=== PATIENT | male | born 1985 | race Caucasian/White ===

== ENCOUNTER 2018-09-16 00:18 | Emergency (ER) | payer SELFPAY ==
[~2018-09-16] VITALS: Ht 170.2 cm; Wt 83.9 kg
[2018-09-16 00:45] VITALS: BP 128/94
--- NOTE | 2018-09-16 00:45 | NUR ---
ER Nurse Note: Pt BIBA 28 from [facility] house c/o snorting a white powder. Per EMS, pt "thought he was taking coke and/or heroin". Pt stated he took fentanyl laced with unknown substance. Pt was given narcan on route; pt a&ox3, VSS. Pt is pale and clammy; awake and alert. Pinpoint pupils; able to track eyes. Substance was found on pt, [employer] confiscated belonging. Will continue to [facility].
--- NOTE | 2018-09-16 00:48 | Emergency Room Report ---
History of Present Illness General Chief Complaint: Overdose Source: Patient, EMS Present Illness HPI Is a 33-year-old male with a history drug abuse. He presents with chief complaint overdose. Friends or acquaintances called 911 because he overdose. He was unresponsive with pinpoint pupil. EMS gave Narcan with good response. Patient had a bag of white substance in his left pocket. This was given to police. Patient said that he did a line of that drug. He thought it was cocaine. Now he thinks his hair when lays with fentanyl. Patient is awake now. Denies any other complaint. No suicidal thoughts or homicidal thought. Allergies: Coded Allergies: No Known Allergies (Unverified , 09/16/18) Patient History Past Medical History: see triage record, old chart reviewed Past Surgical History: other Pertinent Family History: none Social History: Reports: drug use Immunizations: other Reviewed Nursing Documentation: PMH: Agreed; PSxH: Agreed Nursing Documentation-PMH Past Medical History Deferred: Pt Cognitively Impaired Past Medical History: No Stated History Review of Systems Eye: Denies: eye pain, blurred vision ENT: Denies: ear pain, nose congestion, throat swelling Respiratory: Denies: cough, shortness of breath Cardiovascular: Denies: chest pain, palpitations Gastrointestinal: Denies: abdominal pain, diarrhea, nausea, vomiting Musculoskeletal: Denies: back pain, joint pain Skin: Denies: rash Neurological: Denies: headache, numbness Endocrine: Denies: increased thirst, increased urine Hematologic/Lymphatic: Denies: easy bruising All Other Systems: negative except mentioned in HPI Physical Exam Vital Signs Date Time Temp Pulse Resp B/P (MAP) Pulse Ox O2 Delivery O2 Flow Rate FiO2 09/16/18 00:13 110 19 128/94 (105) 98 vitals with tachycardia Sp02 EP Interpretation: reviewed, normal General Appearance: well appearing, no apparent distress, alert Head: normocephalic, atraumatic Eyes: bilateral eye PERRL, bilateral eye EOMI ENT: hearing grossly normal, normal pharynx Neck: full range of motion, supple, no meningismus Respiratory: chest non-tender, lungs clear, normal breath sounds Cardiovascular #1: regular rate, rhythm, no murmur Gastrointestinal: normal bowel sounds, non tender, no mass, no organomegaly, no bruit, non-distended Musculoskeletal: back normal, gait/station normal, normal range of motion Psychiatric: mood/affect normal Skin: warm/dry Medical Decision Making Diagnostic Impression: Primary Impression: Drug overdose Qualified Codes: T50.901A - Poisoning by unspecified drugs, medicaments and biological substances, accidental (unintentional), initial encounter ER Course This with opioid overdose. No evidence of suicidal thoughts or homicidal thought. Patient has been awake and no problem for over an hour. We'll discharge home. Last Vital Signs Date Time Temp Pulse Resp B/P (MAP) Pulse Ox O2 Delivery O2 Flow Rate FiO2 09/16/18 00:13 110 19 128/94 (105) 98 Status: improved Disposition: HOME, SELF-CARE Condition: Stable Additional Instructions: Stop using drugs. Follow up with rehabilitation within a week. Return if worse. Addi Adorno MD September 16, 2018 00:47
[2018-09-16 03:10] VITALS: BP 122/88
--- NOTE | 2018-09-16 03:10 | NUR ---
ER Nurse Note: All orders completed per ERMD orders. Pt seen, treated, medically cleared for discharge by ERMD. Discharge instructions given with repeat verbazliaion by pt. Instructed pt to follow up with primary care provider/rehab within one week. Pt a&ox4, VSS, no signs of distress; denies shortness of breath. ID band removed. IV removed; site clean and bandaged. Pt provided clothes, water, sandwich. Pt left with all belongings with steady gait via own transportation.
== END 2018-09-16 03:10 | disposition home or self-care (01) ==
LOC: EDBD 00:18 → EMR 00:52
DX: T40.601A Poisoning by unspecified narcotics, accidental (unintentional), initial encounter (principal); X58.XXXA Exposure to other specified factors, initial encounter; Y92.9 Unspecified place or not applicable
CPT/HCPCS: 96374; 99284; J2405